=== PATIENT | female | born 1995 | race Caucasian/White ===

== ENCOUNTER 2021-02-27 15:02 | Emergency (ER) | payer OTHER ==
[~2021-02-27] VITALS: Ht 160 cm; Wt 100.0 kg
--- NOTE | 2021-02-27 15:25 | NUR ---
PT C/O OF INTERMITTENT CHEST PAIN AND THROAT TIGHTNESS X2 DAYS. PT STATES FEELS LIKE HEART IS POUNDING OUT OF HER CHEST. PT DENIES SOB/ RADIATING PAIN. PT CHANGED INTO GOWN, ALL MONITORS IN PLACE. CALL LIGHT WITHIN REACH. FAMILY AT BS
--- NOTE | 2021-02-27 16:30 | NUR ---
VIDEOGAME TESTER AT
--- NOTE | 2021-02-27 16:38 | NUR ---
xray at bs
[2021-02-27 16:54] LABS: BASOPHILS % (AUTO) 0 % (0-1); EOSINOPHILS % (AUTO) 1 % (1-7); LYMPHOCYTES % (AUTO) 22 % (22-44); MEAN CORPUSCULAR HEMOGLOBIN 31.8 pg (27.0-34.8); MEAN CORPUSCULAR HGB CONC 34.9 g/dL (32.4-35.8); MEAN PLATELET VOLUME 9.7 fL (7.4-10.4); MONOCYTES % (AUTO) 5 % (2-9); NEUTROPHILS % (AUTO) 73 % (42-75); PLATELET COUNT 233 x10^3/uL (130-400); RED BLOOD COUNT 4.91 x10^6/uL (3.82-5.3); RED CELL DISTRIBUTION WIDTH 12.7 % (9.6-15.2)
[2021-02-27 17:01] VITALS: BP 135/87
--- NOTE | 2021-02-27 17:03 | NUR ---
PT SITTING ON GUSAMIR, NADN/VSS. CALL LIGHT WITHIN REACH. DENIES ANY PAIN. FAMILY AT BS
[2021-02-27 17:05] LABS: ALANINE AMINOTRANSFERASE 19 U/L (12-78); ALBUMIN 4.4 g/dL (3.4-5.0); ANION GAP 11 mmol/L (5-15); CALCIUM 9.3 mg/dL (8.5-10.1); CHLORIDE 109 mmol/L (98-107); CREATININE 0.56 mg/dL (0.55-1.02)
[2021-02-27 17:10] LABS: ALKALINE PHOSPHATASE 51 U/L (45-117); BILIRUBIN,TOTAL 1.4 mg/dL (0.2-1.0); FREE T4 (FREE THYROXINE) 1.27 ng/dL (0.76-1.46); TOTAL PROTEIN 7.4 g/dL (6.4-8.2)
--- NOTE | 2021-02-27 17:38 | NUR ---
ERP AT BS
--- NOTE | 2021-02-27 18:05 | NUR ---
Patient given discharge instructions and they have confirmed that they understand the instructions. Patient ambulatory with steady gait.
== END 2021-02-27 18:07 | disposition home or self-care (01) ==
LOC: ED 15:32
DX: R00.2 Palpitations (principal)
CPT/HCPCS: 36415; 71045; 80053; 84439; 84443; 84703; 85025; 93005; 99285